=== PATIENT | male | born 1945 | race Caucasian/White ===

== ENCOUNTER 2017-10-09 17:35 | Emergency (ER) | payer MEDICARE ==
[~2017-10-09] VITALS: Ht 172.7 cm; Wt 83.9 kg
[~2017-10-09 17:35] MED LIST: CIPRO250 M1 PO; FLAGYL500 MG PO; FLOMAX PO; MEDROLDOSEPACK PO; NOHOMEMEDICATIONS; NORCO 5-325 TA1 EACH PO; PREDNISONE 10 M10 MG PO; TRIAMCINOLONE A15 G1 TP; ZOFRAN ODT4 MG PO
[2017-10-09] MEDS ORDERED: TOBRADEX EYE DRO5 ML OPHTHALMIC (17:59)
[2017-10-09 18:08] VITALS: BP 191/105
== END 2017-10-09 18:09 | disposition home or self-care (01) ==
LOC: M.ERS 17:35
DX: S05.01XA Injury of conjunctiva and corneal abrasion without foreign body, right eye, initial encounter (principal); X58.XXXA Exposure to other specified factors, initial encounter; Y93.89 Activity, other specified; Y92.89 Other specified places as the place of occurrence of the external cause; Y99.8 Other external cause status

== ENCOUNTER 2021-05-25 06:31 | Emergency (ER) | payer MEDICARE ==
[~2021-05-25] VITALS: Ht 172.7 cm; Wt 81.7 kg
[~2021-05-25 06:31] MED LIST changes: +TOBRADEX EYE DRO5 ML OPHTHALMIC
[2021-05-25 06:40] VITALS: BP 178/104
[2021-05-25] MEDS ORDERED: CEPHALEXIN500 MG PO (07:02)
== END 2021-05-25 07:24 | disposition home or self-care (01) ==
LOC: M.ERS 06:31
DX: L03.113 Cellulitis of right upper limb (principal)

== ENCOUNTER 2021-06-22 14:36 | Emergency (ER) | payer MEDICARE ==
[~2021-06-22] VITALS: Ht 172.7 cm; Wt 81.7 kg
[~2021-06-22 14:36] MED LIST changes: +CEPHALEXIN500 MG PO
[2021-06-22 14:38] VITALS: BP 171/84
[2021-06-22] MEDS ORDERED: GENTAK5 ML INTRAOCULR (15:22)
== END 2021-06-22 15:40 | disposition home or self-care (01) ==
LOC: M.ERS 14:36
DX: T15.02XA Foreign body in cornea, left eye, initial encounter (principal); X58.XXXA Exposure to other specified factors, initial encounter; Y93.89 Activity, other specified; Y92.89 Other specified places as the place of occurrence of the external cause; Y99.8 Other external cause status